=== PATIENT | male | born 1965 | race Caucasian/White ===

== ENCOUNTER 2017-04-14 11:58 | Inpatient (IN) | payer BC ==
[~2017-04-14] VITALS: Ht 167.6 cm; Wt 76.4 kg
[~2017-04-14 11:58] MED LIST: BISO10TA6 PO; LEVA750T7 PO; LEXA1TAB2 PO; ZETI10TA30 PO
[2017-04-14] MEDS ORDERED: VITA200015 PO (12:11)
[2017-04-14] MEDS ORDERED: LEVO75TA4 PO (12:11)
[2017-04-14] MEDS ORDERED: BISO5TAB2 PO (12:11)
[2017-04-14 13:20] LABS: MEAN CORPUSCULAR HEMOGLOBIN 29.3 pg (27.0-33.0); MEAN CORPUSCULAR HGB CONC 35.1 g/dl (32.0-36.5); MEAN CORPUSCULAR VOLUME 83.5 fl (80.0-96.0); RED CELL DISTRIBUTION WIDTH 13.1 % (11.5-14.5); WHITE BLOOD COUNT 5.7 K/mm3 (4.0-10.0)
[2017-04-14 13:59] LABS: ALBUMIN 4.3 GM/DL (3.2-5.2); ALBUMIN/GLOBULIN RATIO 1.39 (1.00-1.93); ALKALINE PHOSPHATASE 98 U/L (45-117); ALT/SGPT 33 U/L (12-78); ANION GAP 9 MEQ/L (8-16); AST/SGOT 22 U/L (15-37); BILIRUBIN,DIRECT 0.1 MG/DL (0.0-0.2); BILIRUBIN,TOTAL 0.6 MG/DL (0.2-1.0); BLOOD UREA NITROGEN 14 MG/DL (7-18); CALCIUM LEVEL 9.2 MG/DL (8.5-10.1); CARBON DIOXIDE LEVEL 28 MEQ/L (21-32); CHLORIDE LEVEL 100 MEQ/L (98-107); GLOMERULAR FILTRATION RATE > 60.0 (>56); GLUCOSE, FASTING 90 MG/DL (70-105); POTASSIUM SERUM 3.9 MEQ/L (3.5-5.1); SODIUM LEVEL 137 MEQ/L (136-145); TOTAL PROTEIN 7.4 GM/DL (6.4-8.2)
[2017-04-14 14:14] LABS: METHADONE URINE NEGATIVE (NEGATIVE)
[2017-04-14] MEDS ORDERED: ALEV220C2 PO (16:31)
[2017-04-14] MEDS ORDERED: LEVO50TA5 PO (16:31)
[2017-04-14] MEDS ORDERED: D 101TAB PO (16:41)
[2017-04-14 16:47] VITALS: BP 155/86
[2017-04-14] MEDS ORDERED: MAALOX 30 ML SUSP *UDC PO PRN (18:00)
[2017-04-14] MEDS ORDERED: IBUPROFEN 400 MG TAB PO PRN (18:00)
[2017-04-14] MEDS ORDERED: MOM 30ML SUSPENSION UDC PO PRN (18:00)
[2017-04-14] MEDS ORDERED: NAPROXEN 250 MG TAB PO PRN (18:15)
[2017-04-15] MEDS ORDERED: LEVOTHYROXINE 50MCG TABLET (0.05MG) PO SCH (06:00)
[2017-04-15 06:32] VITALS: BP 124/74
[2017-04-15] MEDS ORDERED: ESCITALOPRAM OXALATE 10 MG TAB (LEXAPRO) PO SCH (09:00)
[2017-04-15] MEDS ORDERED: VITAMIN D 1,000 INTERNATIONAL UNITS TABLET PO SCH (09:00)
[2017-04-15] MEDS ORDERED: buPROPion **XL** TABLET 150MG (WELLBUTRIN XL) PO SCH (09:00)
[2017-04-15] MEDS ORDERED: BISOPROLOL FUMARATE 5 MG TAB PO SCH (09:00)
[2017-04-15] MEDS ORDERED: HYDROCHLOROthiazide 6.25MG PER 1/4TAB PO SCH (09:00)
[2017-04-15] MEDS ORDERED: EZETIMIBE 10 MG TAB (ZETIA) PO SCH (09:00)
[2017-04-15 09:38] VITALS: BP 124/74
[2017-04-15 10:45] LABS: FREE T4 1.2 NG/DL (0.76-1.46)
--- NOTE | 2017-04-15 10:48 | MHHPEPDOC ---
[facility] History & Physical History and Physical DATE OF ADMISSION: Apr 14, 2017 at 15:25 LEGAL STATUS AT ADMISSION: 9.39 CHIEF COMPLAINT: "I meant I wanted my depressed feelings to end, not my life". HISTORY OF THE PRESENT ILLNESS: Patient is a 51-year-old male, who is admitted for inpatient psychiatry services for the first time in his life. He has been taking escitalopram for 20 years. His mood remains low and he has intermittent anxiety at times mostly related to work. Pt has been tried on Abilify for augmentation but he could not remain on that drug due to his occupation as a line haul truck driver delivering [employer]. Pt reports the aripiprazole did not improve his symptoms. Pt attended an appt with his PA yesterday who sent him to our ED for a psych eval due his level of depression. Patient was accompanied by his and other family members. He was very surprised that he was admitted as he hoped that he would be given a recommendation and sent on his way. Our manufacturing planner has spoken to his who states being hospitalized is more traumatic for him than being at home. There are some safety concerns regarding guns as pt enjoys hunting and she states she will remove these from his access. Pt denies and family confirms that he has never made a suicide attempt in the past. Pt adamantly denies intent or plan of suicide. He has 5 years to work until group home. He has a close family that he is active with - attending [employer] games, fishing, & hunting activities on a regular basis. PSYCHIATRIC REVIEW OF SYSTEMS: Affective: anxious Anxiety: mild Trauma: denies sexual, physical abuse or neglect Psychosis: none Illicited or noted Personally: easy to engage PAST PSYCHIATRIC HISTORY: Prior Psychiatric Disorder: MDD without psychotic features Outpatient Treatment: KRYSTLE Deng, counseling at [facility] with an appt on TuesdayApril 18. Suicidal/Self injurious:none/denies/collateral confirms Psychotropic Medication History: Lexapro x 20 years, Abialexis - dc'd, ineffective ALLERGIES: Please see below. FAMILY PSYCHIATRIC HISTORY: 1 brother and 2 sisters also have depression and anxiety and take medication. A nephew who is on lexparo. No family h/o schizophrenia or bipolar disorder. No family h/o suicide. SOCIAL HISTORY: Early Relations/development: raised with siblings and parents. No concerns, no trauma. Developed Ulcerative Colitis in the 11th grade and was out of school alot, so this meant he had to double up on 11th grade and 12th grade work in order to graduate on time, which he did. Sibling order: middle Paternal relationships: now , remained . Education: HS Occupational: line haul truck driver Legal: none Martial: Economic: employed [employer] Supports: , family, friends, sees health care providers as scheduled. Abuse/trauma: none SUBSTANCE ABUSE HISTORY: Pt quit using alcohol 2.5 years ago when his and family made known some of their concerns about his drinking. He went to counseling and was able to stop on his own. He does not drink at all now. He does not use street drugs. No cannabis, cocaine, meth, or heroin. PAST MEDICAL/SURGICAL HISTORY: 1. hypothyroid 2. ulcerative colitis VITAL SIGNS: Temperature 98.2, pulse 55, respiratory rate 16, blood pressure 124 /74, pulse oximetry 99% on room air. MENTAL STATUS EXAMINATION: General appearance: Patient is a 51-year old male, who looks his stated age, wears glasses, small in stature, well groomed. Speech: clear and spontaneous Thought processes: goal directed Thought content: free of delusions, no FOI, appropriate. Abstract reasoning and computation: good. Description of associations: good Description of abnormal or psychotic thoughts: denies perceptual disturbances. no psychotic symptoms illicited. Denies s/s of yazmin and hypomania. Denies plan or intent for suicide or homicide. Judgment: good. Insight: good. Orientation: oriented in all spheres. Recent and remote memory: recall 3/3 after 5 mins Attention span and concentration: good. 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 he was found sitting upright on the bed in his room wearing hospital attire. He was pleasant, polite and fully cooperative. He answered questions freely and appeared to be truthful in his answers. He made it clear he did not expect that coming here would lead to an admission and he hoped he could leave today. Pt has a prescription for xanax tid prn for panic that he has used 4 times in 30 days. His family is very much a part of his life. Though he has been over sleeping and missing work, he feels that he can return to work and is looking forward to doing that. One of his triggers for anxiety is contemplating his route for the next day. We discussed how after 15 years on the job you can pretty much expect to handle whatever will come your way on any given day. Pt reports good concentration, sleeps 7 hours a day, is interested in things outside of work that include family members and friends. He enjoys boating and fishing on a regular basis. Pt denies feelings of hopelessness or worthlessness. He does not contemplate suicide and has not intent of harming himself. He does not have a h/o self-mutilation. He has never made a suicide attempt. He has never been hospitalized for psychiatric reasons in the past. He is not a substance abuser. His moods are stable with depression being the main component which he would like to change. He does not see a psychiatrist for his psychiatric meds. He identifies his job as stressful but does not overuse the [employer] prn that is available to him. Pt is not a tobacco smoker. When drinking pt did not have blackouts. He never went to detox or rehab. He does not have anger issues or a h/o violence. PROBLEM LIST: 1. depression INITIAL TREATMENT PLAN: 1. Patient was admitted on a . 2. Complete history was obtained. 3. With patients permission, family will be contacted and database will be expanded. 4. Patients medication regimen will be reviewed and changed accordingly. 5. Patient will be provided with protected environment. 6. Patient will be treated with individual, group, and milieu therapies. 7. Patient will receive supportive psych-education. 8. Discharge planning will commence immediately. 9. Outpatient follow-up treatment will be strongly recommended. 10. The initial treatment plan will focus initially on: see above. ESTIMATED LENGTH OF STAY: 1 DAYS. Pts symptoms are not severe enough to warrant additional time in the hospital. Given the fact that he is med compliant, keeps his appts, is scheduled to see a counselor Tuesday we will consider discharging him today if certain things are done. 1) guns need to be removed from his home for safe keeping for the time being until new med tx has time to take effect and we can see remission of the depression. 2) he will be referred for psychiatric med mgt to help improve his mental status. He will be started on Wellbutrin xl 150 mg today with a script to fill upon discharge. Risks and benefits of the medication were explained to Mr. Barragan and all questions answered. We will recheck TSH and check T4. Thyroid levels need to be in mid range for antidepressant therapy to be the most beneficial. TIME SPENT COUNSELING AND COORDINATING INITIAL CARE: 50 minutes. Laboratory Data [facility] Laboratory Tests 2 04/14/17 13:12: Urine Amphetamines Screen NEGATIVE, Urine Benzodiazepines Screen NEGATIVE, Urine Opiates Screen NEGATIVE, Urine Methadone Screen NEGATIVE, Urine Barbiturates Screen NEGATIVE, Urine Phencyclidine Screen NEGATIVE, Urine Cocaine Metabolite Screen NEGATIVE, Urine Cannabinoids Screen NEGATIVE 04/14/17 13:13: Anion Gap 9, Glomerular Filtration Rate > 60.0, Calcium Level 9.2, Aspartate Amino Transf (AST/SGOT) 22, Alanine Aminotransferase (ALT/SGPT) 33, Alkaline Phosphatase 98, Total Bilirubin 0.6, Direct Bilirubin 0.1, Total Protein 7.4, Albumin 4.3, Albumin/Globulin Ratio 1.39, Thyroid Stimulating Hormone (TSH) 0.033L, Salicylates Level < 1.7L, Acetaminophen Level < 2.0L, Ethyl Alcohol Level < 0.003 CBC/BMP Laboratory Tests 04/14/17 13:13 Red Blood Count 5.84, Mean Corpuscular Volume 83.5, Mean Corpuscular Hemoglobin 29.3, Mean Corpuscular Hemoglobin Concent 35.1, Red Cell Distribution Width 13.1 Medications Scheduled (Bisoprolol Fumarate/[place] 5-6.25 mg) 1 Tab Tab, 1 TAB PO DAILY, (Reported) Cholecalciferol (D 1000) 1,000 Unit Tab, 3,000 UNIT PO DAILY, (Reported) Escitalopram Oxalate (Lexapro) 20 Mg Tab, 20 MG PO QAM, (Reported) Ezetimibe (Zetia) 10 Mg Tab, 10 MG PO DAILY, (Reported) Levothyroxine Sodium (Synthroid) 50 Mcg Tab, 50 MCG PO DAILY, (Reported) PT STATES HE IS CUTTING PILL IN HALF ALTHOUGH SCRIPT IS WRITTEN FOR 1 TAB Scheduled PRN (Aleve) 220 Mg Cap, 220 MG PO Q4H PRN for PAIN, (Reported) Allergies Coded Allergies: Acetaminophen (Verified Allergy, Unknown, NAUSEA AND VOMITING, 07/01/15) Penicillins (Verified Allergy, Unknown, HIVES, 07/01/15) Chrystal Ahn Apr 15, 2017 10:48
[2017-04-15] MEDS ORDERED: BUPR150T3 PO (10:56)
--- NOTE | 2017-05-06 13:42 | MHDSPDOC ---
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 Pts symptoms are not severe enough to warrant additional time in the hospital. Given the fact that he is med compliant, keeps his appts, is scheduled to see a counselor Tuesday we will consider discharging him today if certain things are done. 1) guns need to be removed from his home for safe keeping for the time being until new med tx has time to take effect and we can see remission of the depression. 2) he will be referred for psychiatric med mgt to help improve his mental status. He will be started on Wellbutrin xl 150 mg today with a script to fill upon discharge. Risks and benefits of the medication were explained to Mr. Barragan and all questions answered. We will recheck TSH and check T4. Thyroid levels need to be in mid range for antidepressant therapy to be the most beneficial. CONSULTANTS INVOLVED: na TREATMENT AND PROGRESS ON THE UNIT : Patient was discharged with follow up the same day of admission. HOSPITAL COURSE: pt allowed to leave spending less than 24 hours on the unit. He felt his statements were not understood by ED staff and Attending and feels worse on the unit. He feels he would be better at home with his supportive family. He is agreeable to having his medication for depression prescribed by a psychiatrist since he is having a great deal of difficulty getting relief from the depression. He is also agreeable to therapy as needed. DISCHARGE ASSESSMENT: pt is not acutely or chronically suicidal. He was having a frustrating day and did not explain himself fully when evaluated by the PA and again in our ED. He is very anxious on the unit almost in a panic and wants to leave. We were able to obtain collateral information that was assuring his family would look, after him and remove weapons from the home. He has follow up appointment made for this week and assures us he will keep them. His is adamant that he does so and will see to it. MENTAL STATUS EXAMINATION ON DISCHARGE: General appearance: Patient is a 51-year old male, who looks his stated age, wears glasses, small in stature, well groomed. Speech: clear and spontaneous Thought processes: goal directed Thought content: free of delusions, no FOI, appropriate. Abstract reasoning and computation: good. Description of associations: good Description of abnormal or psychotic thoughts: denies perceptual disturbances. no psychotic symptoms illicited. Denies s/s of yazmin and hypomania. Denies plan or intent for suicide or homicide. Judgment: good. Insight: good. Orientation: oriented in all spheres. Recent and remote memory: recall 3/3 after 5 mins Attention span and concentration: good. Fund of knowledge: full Mood: euthymic Affect: congruent MEDICATIONS ON DISCHARGE: Lexapro 20 mg daily Wellbutrin XL 150 mg q a.m. PLAN/FOLLOWUP ARRANGEMENTS: [facility] 04/18/17 for med mgt and therapy. The amount of time spent in the coordination of care for this patient was approximately 30 minutes. Medications Scheduled (Bisoprolol Fumarate/[place] 5-6.25 mg) 1 Tab Tab, 1 TAB PO DAILY, (Reported) Bupropion Hcl (Bupropion HCl Xl) 150 Mg Tab, 150 MG PO DAILY for DEPRESSION for 7 Days, #7 take in a.m. only. augmentation for lexapro Cholecalciferol (D 1000) 1,000 Unit Tab, 3,000 UNIT PO DAILY, (Reported) Escitalopram Oxalate (Lexapro) 20 Mg Tab, 20 MG PO QAM, (Reported) Ezetimibe (Zetia) 10 Mg Tab, 10 MG PO DAILY, (Reported) Levothyroxine Sodium (Synthroid) 50 Mcg Tab, 50 MCG PO DAILY, (Reported) PT STATES HE IS CUTTING PILL IN HALF ALTHOUGH SCRIPT IS WRITTEN FOR 1 TAB Scheduled PRN (Aleve) 220 Mg Cap, 220 MG PO Q4H PRN for PAIN, (Reported) Allergies Coded Allergies: Acetaminophen (Verified Allergy, Unknown, NAUSEA AND VOMITING, 07/01/15) Penicillins (Verified Allergy, Unknown, HIVES, 07/01/15) Chrystal Ahn May 06, 2017 13:42
== END 2017-04-15 12:40 | disposition home or self-care (01) | DRG 751 ==
LOC: M ED 15:19 → M ED INP 15:25 → M PSY 16:44
PROVIDERS: ADMIT Psychiatry & Neurology Psychiatry; ATTEND Psychiatry & Neurology Psychiatry
DX: F33.0 Major depressive disorder, recurrent, mild (principal); F10.10 Alcohol abuse, uncomplicated; Z88.0 Allergy status to penicillin; Z88.6 Allergy status to analgesic agent; Z79.899 Other long term (current) drug therapy

== ENCOUNTER → 2021-01-13 | Outpatient (CLI) | payer BC ==
[~2021-01-13] MED LIST changes: +ALEV220C2 PO; +BISO10TA14 PO; -BISO10TA6 PO; +BISO5TAB2 PO; +BUPR150T12 PO; +LEVO50TA5 PO; +LEVO75TA4 PO; +VITA-144 PO; +VITA200015 PO; +ZETI10TA16 PO; -ZETI10TA30 PO
[2021-01-13 14:14] LABS: PLATELET COUNT, AUTOMATED 292 10^3/uL (150-450)
[2021-01-13 14:24] LABS: INR 0.96
[2021-01-13 14:25] LABS: PARTIAL THROMBOPLASTIN TIME 31.4 SECONDS (24.2-38.5)
== END ==
LOC: M PLALAB 11:14
PROVIDERS: ATTEND Physical Medicine & Rehabilitation
DX: S39.012D Strain of muscle, fascia and tendon of lower back, subsequent encounter (principal); X58.XXXD Exposure to other specified factors, subsequent encounter; Y92.89 Other specified places as the place of occurrence of the external cause

== ENCOUNTER 2023-11-10 07:43 | Day surgery (SDC) | payer OTHER ==
[~2023-11-10] VITALS: Ht 167.6 cm; Wt 81.6 kg
[~2023-11-10 07:43] MED LIST changes: +BISO1TAB18 PO; -BISO5TAB2 PO; +BSS IRRIG/VANCO(10MG)/TOBRA(5MG)/EPINEPH(1:1000-0.5CC)500ML BAG-ORONLY IR ONE; +BUPR300T92 PO; +CEFUROXIME 1MG/0.1ML INTRACAMERAL INJ As Ordered ONE; +CYCLOPENTOLATE 1% OPHTH SOLN 2ML BTL OD SCH; +D32000CA PO; +EZET10TA58 PO; +IBUP80TA PO; +LIDOCAINE 1% SDV 5ML VIAL As Ordered ONE; +LIDOCAINE 3.5 % 1ML OPHTH TOPICAL GEL OU ONE; +MIDAZOLAM INJ 2MG/2ML VIAL As Ordered ONE; +MOXIFLOXACIN 0.6MG/0.4ML INTRAOCULAR SYRINGE As Ordered ONE; +OFLOXACIN 0.3 % (OCUFLOX) OPTH SOL 5ML OD ONE; +PHENYLEPHRINE 10% OPHTH SOL 5ML OD PRN; +PHENYLEPHRINE 2.5% OPHTH SOL 2ML OD SCH; +TROPICAMIDE 1% OPHTH SOLN 15ML OD SCH; -ZETI10TA16 PO; +fentaNYL 100 MCG/2 ML INJECTION As Ordered ONE
[2023-11-10 09:20] VITALS: BP 151/78; TEMP 97.8; O2SAT 96
== END 2023-11-10 09:41 | disposition home or self-care (01) ==
LOC: M SDC 07:43
PROVIDERS: ATTEND Ophthalmology
DX: H25.11 Age-related nuclear cataract, right eye (principal); I10 Essential (primary) hypertension; F32.A Depression, unspecified; F41.9 Anxiety disorder, unspecified; Z79.899 Other long term (current) drug therapy; Z88.0 Allergy status to penicillin
CPT/HCPCS: 66984; 92015; J2250; J3010; V2632